=== PATIENT | female | born 1930 | race Caucasian/White ===

== ENCOUNTER 2020-11-15 18:38 | Inpatient (IN) | payer MEDICARE, MEDICAID ==
[~2020-11-15] VITALS: Ht 160 cm; Wt 71.7 kg
[2020-11-15 20:14] LABS: HEMOGLOBIN 15.4 gm/dl (12.3-15.3); RED BLOOD COUNT 5.1 M/UL (4.00-5.10)
[2020-11-15 20:37] LABS: BUN/CREATININE RATIO 12 (0-10)
[2020-11-16] MEDS ORDERED: PROTONIX40 MG PO (11:36)
[2020-11-16] MEDS ORDERED: NAMENDA10 MG PO (11:36)
[2020-11-16] MEDS ORDERED: PROAMATINE 2.52.5 MG PO (11:37)
[2020-11-16] MEDS ORDERED: DESYREL 50 MG T50 MG PO (11:37)
[2020-11-16] MEDS ORDERED: MEGACE TAB 20 M20 MG PO (11:37)
[2020-11-16] MEDS ORDERED: LEVOTHYROXINE150 MC1 PO (11:37)
[2020-11-16] MEDS ORDERED: ATIVAN1 MG PO (11:38)
[2020-11-16] MEDS ORDERED: PAXIL20 MG PO (11:38)
[2020-11-16] MEDS ORDERED: ROPINIROLE HCL1 MG PO (11:38)
[2020-11-16] MEDS ORDERED: ARICEPT23 MG PO (11:39)
[2020-11-16] MEDS ORDERED: MAG DELAY64 M1 PO (11:39)
[2020-11-16] MEDS ORDERED: DEMADEX 10 MG T10 MG PO (11:40)
[2020-11-16] MEDS ORDERED: VITAMIN D250 MCG PO (12:53)
[2020-11-16] MEDS ORDERED: IMODIUM CAP 2 MG2 MG PO (12:53)
[2020-11-16] MEDS ORDERED: [UNRECOGNIZED DRUG - OTHER] TOP (12:54)
[2020-11-16] MEDS ORDERED: CLARITIN10 MG PO (12:54)
[2020-11-18 05:57] LABS: HEMOGLOBIN 13.1 gm/dl (12.3-15.3); RED BLOOD COUNT 4.39 M/UL (4.00-5.10); WHITE BLOOD COUNT 6.9 K/UL (4.5-11.0)
--- NOTE | 2020-11-18 09:11 | NUR ---
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 informed of pain management with activity and refused to get out of bed. will notify
--- NOTE | 2020-11-18 17:23 | NUR ---
patient's pulse ox range from 85-92 with 012L via nasal cannula. increase 02 to 2L. pulse ox 100% at this time
--- NOTE | 2020-11-19 12:00 | NUR ---
PT O2 SAT 82 PERCENT ON ROOM AIR AT THIS TIME 11/19/20 1200
[2020-11-20 06:36] LABS: BUN/CREATININE RATIO 15 (0-10)
[2020-11-20] MEDS ORDERED: CEFUROXIME250 MG PO (08:53)
[2020-11-20] MEDS ORDERED: IPRAT-ALBUT 0.5-3 ML NEB (11:15)
== END 2020-11-20 12:02 | disposition home or self-care (01) | DRG 189 ==
LOC: ER1 18:38 → M/S 22:25 → CDU 22:25 → M/S 11-16 07:09
PROVIDERS: Emergency Medicine; Internal Medicine; ADMIT Internal Medicine
DX: J96.01 Acute respiratory failure with hypoxia (principal); N39.0 Urinary tract infection, site not specified; J98.11 Atelectasis; G93.40 Encephalopathy, unspecified; I50.20 Unspecified systolic (congestive) heart failure; B96.20 Unspecified Escherichia coli [E. coli] as the cause of diseases classified elsewhere; F03.90 Unspecified dementia, unspecified severity, without behavioral disturbance, psychotic disturbance, mood disturbance, and anxiety; R29.810 Facial weakness; R53.1 Weakness; Z91.81 History of falling; Z95.810 Presence of automatic (implantable) cardiac defibrillator; Z79.899 Other long term (current) drug therapy; Z86.73 Personal history of transient ischemic attack (TIA), and cerebral infarction without residual deficits; Z90.5 Acquired absence of kidney; Z90.710 Acquired absence of both cervix and uterus; Z87.891 Personal history of nicotine dependence; Z66 Do not resuscitate; Z20.822 Contact with and (suspected) exposure to COVID-19; I11.0 Hypertensive heart disease with heart failure; Z88.5 Allergy status to narcotic agent; Z88.8 Allergy status to other drugs, medicaments and biological substances; Z82.3 Family history of stroke
CPT/HCPCS: ECHO; 0240U; 36415; 36600; 70450; 71045; 80048; 80053; 81001; 82550; 82553; 82803; 83605; 83690; 83735; 83874; 83880; 84484; 85025; 85610; 85730; 87077; 87086; 87186; 92526; 92610; 93005; 93306; 93880; 94640; 94664; 94760; 96374; 97110-GP-CQ; 97116-GP-CQ; 97162; 97530-GP-CQ; 99285; J0696; J1650